=== PATIENT | male | born 1960 | race Caucasian/White ===

== ENCOUNTER 2025-04-09 10:33 | Inpatient (IN) | payer OTHER, MEDICAID ==
[~2025-04-09] VITALS: Ht 190.5 cm; Wt 75.0 kg
[~2025-04-09 10:33] MED LIST: ALBU2.5V39 NEB; CLON-592 PO; DOCU-385 PO; IPRA0.2S49 NEB; NAPR220C15 PO; PRED5TAB2 PO
[2025-04-09] MEDS ORDERED: IPRATROPIUM BROMIDE HFA 17 MCG/PUFF 12.9 GM INHALER IH PRN (18:30)
[2025-04-09 18:53] VITALS: BP 115/87; PULSE 102; RESP 17; TEMP 97.8; O2SAT 97
[2025-04-09 21:25] VITALS: PULSE 99; RESP 22; O2SAT 96
[2025-04-09 21:35] VITALS: PULSE 101; RESP 22; O2SAT 99
[2025-04-09 23:13] VITALS: RESP 20
[2025-04-10] MEDS: IPRATROPIUM BROMIDE 0.5 MG/2.5 ML NEB SOLUTION NEB PRN (05:03)
[2025-04-10 08:17] VITALS: RESP 16
[2025-04-10] MEDS: ALBUTEROL SULFATE HFA 90 MCG/PUFF 8 GM INHALER IH PRN (09:00)
[2025-04-10] MEDS: DULoxetine HCL 60 MG CAPSULE PO SCH ×2 (12:00→20:39)
[2025-04-10 13:45] VITALS: PULSE 97; RESP 22; O2SAT 95
[2025-04-10 13:55] VITALS: PULSE 99; RESP 20; O2SAT 100
[2025-04-10] MEDS: LURASIDONE HCL 60 MG TABLET PO SCH (16:43)
[2025-04-10] MEDS ORDERED: PETROLATUM,WHITE 28 GM JELLY TP PRN (19:00)
[2025-04-10] MEDS ORDERED: ALBUTEROL SULFATE HFA 90 MCG/PUFF 8 GM INHALER IH PRN (19:00)
[2025-04-10] MEDS ORDERED: MAG HYDROX/ALUMINUM HYD/SIMETH ES 30 ML SUSPENSION UDCUP PO PRN (19:00)
[2025-04-10] MEDS ORDERED: ONDANSETRON 4 MG TABLET PO PRN (19:00)
[2025-04-10] MEDS ORDERED: NICOTINE 14 MG/24 HOUR PATCH TD PRN (19:00)
[2025-04-10] MEDS ORDERED: GuaiFENesin/D-METHORPHAN [SUGAR-FREE] 200-20MG/10 ML SYRUP UDCUP PO PRN (19:00)
[2025-04-10] MEDS ORDERED: DOCUSATE SODIUM 100 MG CAPSULE PO PRN (19:00)
[2025-04-10] MEDS ORDERED: MAGNESIUM HYDROXIDE SUSPENSION 30 ML UDCUP PO PRN (19:00)
[2025-04-10] MEDS ORDERED: LOPERAMIDE HCL 2 MG CAPSULE PO PRN (19:00)
[2025-04-10 21:06] VITALS: BP 108/71; PULSE 92; RESP 18; TEMP 97.8
[2025-04-10] MEDS: ZOLPIDEM TARTRATE 10 MG TABLET PO PRN (22:11)
[2025-04-11 06:54] LABS: ASPARTATE AMINOTRANSFERASE 16 U/L (15-37); CALCIUM, TOTAL 8.4 mg/dL (8.8-10.5); CREATININE 0.82 mg/dL (0.60-1.30); GLOMERULAR FILTR. RATE CALC > 60 mL/min (>60); GLUCOSE,RANDOM 102 mg/dL (70-110); SODIUM SERUM 140 mmol/L (136-145); TOTAL PROTEIN, SERUM 6.0 g/dL (6.4-8.2); UREA NITROGEN, BLOOD 25 mg/dL (7-18)
[2025-04-11 07:00] LABS: PLATELET COUNT (AUTO) 233 K/uL (150-450); RED BLOOD CELL COUNT(AUTO) 4.64 MIL/uL (4.50-5.90); RED CELL DISTRIBUTION WIDTH 13.1 % (11.5-14.5); WHITE BLOOD COUNT (AUTO) 11.2 K/uL (4.5-11.0)
[2025-04-11 08:27] LABS: CHOL/HDL RATIO 3.7 (4.2-7.3); LDL CHOL (CALC.) 94.0 mg/dL (0-130)
[2025-04-11 10:29] VITALS: BP 145/105; PULSE 62; RESP 18; TEMP 98
[2025-04-11 20:13] VITALS: BP 112/90; PULSE 99; RESP 18; TEMP 98.6; O2SAT 96
[2025-04-12 08:09] VITALS: BP 130/76; PULSE 86; RESP 17; TEMP 98.1; O2SAT 95
[2025-04-12 20:05] VITALS: PULSE 102; PULSE 104; RESP 22; O2SAT 92
[2025-04-12 20:20] VITALS: PULSE 94; RESP 20; O2SAT 93
[2025-04-12 20:22] VITALS: BP_SYST 107; BP_DIAS 6; BP_DIAS 65; PULSE 99; RESP 18; TEMP 98; O2SAT 100
[2025-04-13 01:50] VITALS: BP 141/99; PULSE 93; RESP 18; TEMP 98.6; O2SAT 96
[2025-04-13] MEDS: IBUPROFEN 400 MG TABLET PO PRN (01:58)
[2025-04-13 10:04] VITALS: BP 113/77; PULSE 78; RESP 18; TEMP 98; O2SAT 96
[2025-04-13 15:19] VITALS: BP 110/78; PULSE 99; RESP 19; TEMP 97.8; O2SAT 96
[2025-04-13 17:45] VITALS: PULSE 96; RESP 22; O2SAT 96
[2025-04-13 18:01] VITALS: PULSE 92; RESP 22; O2SAT 99
[2025-04-13 20:16] VITALS: BP 135/83; PULSE 95; RESP 18; TEMP 98; O2SAT 95
[2025-04-14 11:13] VITALS: PULSE 97; RESP 20; O2SAT 96
[2025-04-14 11:14] VITALS: PULSE 97; RESP 20; O2SAT 96
[2025-04-14 12:41] VITALS: BP 134/75; PULSE 55; RESP 18; TEMP 98.2; O2SAT 98
[2025-04-14 22:34] VITALS: BP 136/90; PULSE 94; RESP 18; TEMP 98.4; O2SAT 99
[2025-04-15 08:30] VITALS: BP 123/100; PULSE 100; RESP 18; TEMP 98.7; O2SAT 98
[2025-04-15 22:38] VITALS: BP 112/71; PULSE 78; RESP 18; TEMP 97.9; O2SAT 95
[2025-04-16 08:39] VITALS: BP 136/96; PULSE 96; RESP 17; TEMP 98.2; O2SAT 96
[2025-04-16 20:35] VITALS: PULSE 92; RESP 18; O2SAT 97
[2025-04-16 20:45] VITALS: PULSE 95; RESP 18; O2SAT 100
[2025-04-16 21:09] VITALS: BP 140/85; PULSE 95; RESP 19; TEMP 97.6; O2SAT 98
[2025-04-17 08:46] VITALS: BP 121/88; PULSE 97; RESP 18; TEMP 97.7; O2SAT 99
[2025-04-17 14:15] VITALS: BP 119/64; PULSE 88; RESP 16; TEMP 98.6; O2SAT 95
[2025-04-17 14:16] VITALS: BP 121/74; RESP 18; O2SAT 96
[2025-04-17] MEDS: ACETAMINOPHEN 325 MG TABLET PO PRN (14:16)
[2025-04-17 15:16] VITALS: RESP 16
[2025-04-17 21:29] VITALS: BP 134/72; PULSE 90; RESP 18; TEMP 97.8; O2SAT 95
[2025-04-18 04:55] VITALS: PULSE 103; PULSE 108; RESP 18; O2SAT 98
[2025-04-18 05:10] VITALS: PULSE 108; RESP 18; O2SAT 99
[2025-04-18 08:45] VITALS: BP 127/97; PULSE 91; RESP 18; TEMP 97.7; O2SAT 97
[2025-04-18 21:44] VITALS: BP 143/94; PULSE 92; RESP 18; TEMP 98.6; O2SAT 99
[2025-04-19 07:28] LABS: PLATELET COUNT (AUTO) 279 K/uL (150-450); RED BLOOD CELL COUNT(AUTO) 4.48 MIL/uL (4.50-5.90); RED CELL DISTRIBUTION WIDTH 13.1 % (11.5-14.5); WHITE BLOOD COUNT (AUTO) 8.8 K/uL (4.5-11.0)
[2025-04-19 11:47] VITALS: BP 149/99; PULSE 72; RESP 17; TEMP 98.1; O2SAT 97
[2025-04-19 12:47] VITALS: BP 147/98; PULSE 73; RESP 18; TEMP 98.2; O2SAT 98
[2025-04-19 21:28] VITALS: BP 130/92; PULSE 95; RESP 19; TEMP 97.9; O2SAT 97
[2025-04-19 22:31] VITALS: RESP 18
[2025-04-19 23:40] VITALS: BP 133/95; PULSE 102; RESP 18; TEMP 98.3; O2SAT 95
[2025-04-20] VITALS (8 sets, daily range): BP systolic 132–146; BP diastolic 83–95; PULSE 83–99; RESP 18–19; TEMP 97.9–98.3; O2SAT 94–98
[2025-04-21] VITALS (7 sets, daily range): BP systolic 109–135; BP diastolic 60–87; PULSE 85–100; RESP 16–18; TEMP 97.6–98.4; O2SAT 96–98
[2025-04-22 00:11] VITALS: RESP 18
[2025-04-22 09:06] VITALS: BP 156/94; PULSE 71; RESP 18; TEMP 98.2; O2SAT 100
[2025-04-22 17:57] VITALS: RESP 17
[2025-04-22 22:35] VITALS: BP 145/99; PULSE 98; RESP 18; TEMP 97.4
[2025-04-23 01:00] VITALS: BP 138/95; PULSE 95; RESP 18; TEMP 97.6; O2SAT 98
[2025-04-23 02:04] VITALS: RESP 18
[2025-04-23 09:49] VITALS: BP 130/74; PULSE 87; RESP 18; TEMP 98; O2SAT 96
[2025-04-23] MEDS ORDERED: LURA60TA PO (11:27)
[2025-04-23] MEDS ORDERED: DULO60CA73 PO (11:27)
== END 2025-04-23 17:40 | disposition home or self-care (01) | DRG 885 ==
LOC: 3EI 17:49
PROVIDERS: ADMIT Psychiatry & Neurology Child & Adolescent Psychiatry; ATTEND Psychiatry & Neurology Child & Adolescent Psychiatry
PROC: GZ56ZZZ Individual Psychotherapy, Supportive (ICD-10-PCS; 2025-04-10)
PROC: GZ58ZZZ Individual Psychotherapy, Cognitive-Behavioral (ICD-10-PCS; 2025-04-10)
PROC: GZ52ZZZ Individual Psychotherapy, Cognitive (ICD-10-PCS; 2025-04-11)
PROC: GZHZZZZ Group Psychotherapy (ICD-10-PCS; principal; 2025-04-12)
DX: F25.0 Schizoaffective disorder, bipolar type (principal); K59.00 Constipation, unspecified; D72.829 Elevated white blood cell count, unspecified; J44.9 Chronic obstructive pulmonary disease, unspecified; R03.0 Elevated blood-pressure reading, without diagnosis of hypertension; D64.9 Anemia, unspecified; Z91.148 Patient's other noncompliance with medication regimen for other reason
CPT/HCPCS: 80053; 80061; 83036; 84443; 85025; 94640; 94760; J3535